=== PATIENT | female | born 1960 | race Caucasian/White ===

== ENCOUNTER 2021-06-26 14:07 | Emergency (ER) | payer MEDICARE, OTHER ==
[~2021-06-26] VITALS: Ht 162.6 cm; Wt 95.3 kg
[~2021-06-26 14:07] MED LIST: ABILIFY5 MG PO; CELEXA10 MG PO; CLONAZEPAM1 MG PO; DICLOFENAC PO; LAMOTRIGINE25 M2 PO; NORCO 10MG-325MG1 EA PO; NORCO 5-325 TA1 EACH PO; PANTOPRAZOLE SO40 MG PO; PROPRANOLOL HCL10 MG PO; TOPIRAMATE25 MG PO; ZOLPIDEM TARTRA10 MG PO
[2021-06-26 15:24] VITALS: BP 112/62
== END 2021-06-26 15:31 | disposition home or self-care (01) ==
LOC: FSED 14:30
DX: R00.2 Palpitations (principal); F41.9 Anxiety disorder, unspecified; Z63.4 Disappearance and death of family member; F31.9 Bipolar disorder, unspecified
CPT/HCPCS: 80053; 82553; 84484; 85025; 85379; 93005; 99283

== ENCOUNTER 2023-10-14 09:17 | Emergency (ER) | payer MEDICARE ==
[~2023-10-14] VITALS: Ht 162.6 cm; Wt 95.3 kg
[2023-10-14] MEDS: SODIUM CHLORIDE 0.9% 1000ML 1,000 ML IV STA (11:37)
[2023-10-14] MEDS: METOCLOPRAMIDE HCL 10 MG/2ML VIAL IV ONE (11:37)
[2023-10-14 11:56] LABS: BASOPHILS # (AUTO) 0.1 (0.0-0.1); EOSINOPHILS # (AUTO) 0.3 (0.0-0.4); EOSINOPHILS % 2.5 % (0.0-6.0); HEMATOCRIT 41.9 % (34.2-44.1); HEMOGLOBIN 12.9 g/dL (12.0-16.0); LYMPHOCYTES # (AUTO) 3.5 (1.0-3.2); LYMPHOCYTES % 32.4 % (18.0-39.1); MEAN CORPUSCULAR HEMOGLOBIN 25.9 pg (28-32); MEAN CORPUSCULAR HGB CONC 30.8 g/dL (31-35); MEAN CORPUSCULAR VOLUME 84.1 fL (81-99); MONOCYTES # (AUTO) 0.9 (0.2-0.8); MONOCYTES % 7.9 % (4.4-11.3); NEUTROPHILS % 55.9 % (38.7-80.0); PLATELET COUNT 332 x10e3/uL (140-360); RED BLOOD COUNT 4.98 x10e6/uL (3.6-5.1); RED CELL DISTRIBUTION WIDTH 14.1 % (11.7-14.4)
[2023-10-14 12:05] LABS: ANION GAP 15.1 mmol/L (8-16); CALCIUM 9.3 mg/dL (8.4-10.2); CREATININE, SERUM 1.01 mg/dL (0.57-1.11); POTASSIUM 4.1 mmol/L (3.5-5.1)
[2023-10-14] MEDS ORDERED: REGLAN10 MG PO (12:59)
[2023-10-14] MEDS: DEXAMETHASONE SOD PHOS 10 MG/1 ML VIAL IV ONE (13:28)
[2023-10-14] MEDS: KETOROLAC TROMETHAMINE 30 MG/ML VIAL IV STA (13:29)
[2023-10-14 14:15] VITALS: BP 110/50; PULSE 75; RESP 16; O2SAT 100
== END 2023-10-14 13:45 | disposition home or self-care (01) ==
LOC: ER 10:00
DX: G43.909 Migraine, unspecified, not intractable, without status migrainosus (principal); E11.9 Type 2 diabetes mellitus without complications; F41.9 Anxiety disorder, unspecified; F31.9 Bipolar disorder, unspecified
CPT/HCPCS: 36415; 70450; 80048; 85025; 99284; J1100; J1885; J2765; J7030